=== PATIENT | female | born 1985 | race Caucasian/White ===

== ENCOUNTER 2016-09-06 10:27 | Emergency (ER) | payer MEDICAID ==
[~2016-09-06] VITALS: Ht 167.6 cm; Wt 63.0 kg
[2016-09-06] MEDS ORDERED: TETRACAINE HCL 0.5% OPHT DROP 2 ML BOTTLE OP ONE (10:45)
[2016-09-06] MEDS ORDERED: FLUORESCEIN SODIUM 1 MG STRIP OP ONE (10:45)
--- NOTE | 2016-09-06 10:56 | NUR ---
ACUITY CHECHED, TETRACAINE AND FLURO STRIP AT THE BEDSIDE WITH BLACK LIGHT LAMP FOR MD TO USE.
[2016-09-06] MEDS ORDERED: FLUORESCEIN SODIUM 1 MG STRIP ONE (11:03)
[2016-09-06] MEDS ORDERED: TETRACAINE HCL 0.5% OPHT DROP 2 ML BOTTLE ONE (11:03)
--- NOTE | 2016-09-06 11:14 | NUR ---
PT D/C'D HOME, ACI/RX X1 GIVEN. PT AAMBULATED W/O DIFF/TOOK ALL BELONGINGS.
[2016-09-06 11:16] VITALS: BP 118/76
== END 2016-09-06 11:17 | disposition home or self-care (01) ==
LOC: ER 10:27
DX: H18.823 Corneal disorder due to contact lens, bilateral (principal)
CPT/HCPCS: A4663

== ENCOUNTER 2019-01-27 21:16 | Emergency (ER) | payer BC ==
[~2019-01-27] VITALS: Ht 165.1 cm; Wt 68.0 kg
--- NOTE | 2019-01-27 21:38 | NUR ---
PT IS AMBULATORY W/ STABLE GAIT ABLE TO VOID FREELY ABLE TO SPEAK CLEAR AND COMPLETE SENTENCES AOX4 REPORTS VOMITING ONCE LAST WEEK REPORTS DIZZINESS 30MINS MATE RELIEF, DENIES TRAUMA NOR SURGERY TO THE SITE DENIES BLURRED VISION NOR EYE PAIN, DENIES EARPAIN DENIES RECENTS TRAVELS LMP 12/27/2018, IRREGULAR MENSES SEXUALLY ACTIVE W/ 1 PARTNER MD AT BEDSIDE FOR HX AND PHYSICAL
[2019-01-27 21:55] LABS: BASOPHILS % (AUTO) 0.3 % (0.0-2.0); EOSINOPHILS # (AUTO) 0.1 K/uL (0.0-0.7); EOSINOPHILS % (AUTO) 1.8 % (0.0-7.0); HEMATOCRIT 40.1 % (31.2-41.9); HEMOGLOBIN 13.5 g/dL (10.9-14.3); LYMPHOCYTES # (AUTO) 2.4 K/uL (20.0-40.0); LYMPHOCYTES % (AUTO) 34.2 % (20.5-51.5); MEAN CORPUSCULAR HEMOGLOBIN 30.4 uug (24.7-32.8); MEAN CORPUSCULAR HGB CONC 34 g/dL (32.3-35.6); MEAN CORPUSCULAR VOLUME 90.5 fL (75.5-95.3); MONOCYTES # (AUTO) 0.5 K/uL (2.0-10.0); MONOCYTES % (AUTO) 7.1 % (0.0-11.0); NEUTROPHILS # (AUTO) 3.9 K/uL (1.8-8.9); NEUTROPHILS % (AUTO) 56.6 % (38.5-71.5); PLATELET COUNT (AUTO) 288 K/uL (179-408); RED BLOOD CELL COUNT(AUTO) 4.43 MIL/uL (3.63-4.92); WHITE BLOOD COUNT (AUTO) 6.9 K/uL (3.8-11.8)
[2019-01-27 22:01] LABS: CREATININE 0.8 mg/dL (0.6-1.3); POTASSIUM 3.6 mmol/L (3.5-5.1)
[2019-01-27 22:07] LABS: BILIRUBIN,DIRECT 0.1 mg/dL (0.0-0.2); BILIRUBIN,TOTAL 0.2 mg/dL (0.2-1.0); TOTAL PROTEIN, SERUM 7.3 g/dL (6.4-8.2)
[2019-01-27 22:10] LABS: *URINE HCG, QUAL NEGATIVE (NEGATIVE)
[2019-01-27 22:14] LABS: *BILIRUBIN,URIN NEGATIVE (NEGATIVE); *BLOOD, URINE NEGATIVE (NEGATIVE); *COLOR,URINE YELLOW (YELLOW); *KETONES,URINE NEGATIVE (NEGATIVE); *UROBILINOGEN,URINE 0.2 E.U./dl (NORMAL); LEUKOCYTE ESTERASE ,URINE NEGATIVE (NEGATIVE); NITRITE, URINE NEGATIVE (NEGATIVE); UGLUCOSE NEGATIVE (NEGATIVE)
[2019-01-27 22:22] LABS: *CLARITY,URINE HAZY (CLEAR); WBC,URINE 0-3 /HPF (0-3)
[2019-01-27 22:23] LABS: BACTERIA,URINE MODERATE /HPF (NONE SEEN); SQUAMOUS EPITHELIAL CELL,UR MANY /HPF (NONE SEEN)
[2019-01-27] MEDS ORDERED: IV NS 1000 ML 1,000 ML IV ONE (22:45)
[2019-01-28 00:12] VITALS: BP 111/69
--- NOTE | 2019-01-28 00:12 | NUR ---
Patient discharged to home in stable conditon. Written and verbal after care instructions given. Patient verbalizes understanding of instructions. AMBULATORY W/ STABLE GAIT ALL BELONGINGS W/ PT
== END 2019-01-28 00:13 | disposition home or self-care (01) ==
LOC: ER 21:17
DX: R07.89 Other chest pain (principal); R42 Dizziness and giddiness; R53.1 Weakness
CPT/HCPCS: 36415; 70030-TC; 71045; 84703; 85025; 85730; 87086; 93005; A4663; J7030

== ENCOUNTER 2021-07-26 11:37 | Emergency (ER) | payer BC, MEDICAID ==
[~2021-07-26] VITALS: Ht 165.1 cm; Wt 66.7 kg
--- NOTE | 2021-07-26 11:40 | NUR ---
MD at bedside, medical screening exam in progress.
--- NOTE | 2021-07-26 12:06 | NUR ---
Chaperoned MD at pts bedside.
[2021-07-26 12:09] VITALS: BP 122/70
--- NOTE | 2021-07-26 12:09 | NUR ---
Patient discharged to home in stable condition. Written and verbal after care instructions given. Patient verbalizes understanding of instructions. Stressed follow up or return to ER for worsening s/s.
== END 2021-07-26 12:10 | disposition home or self-care (01) ==
LOC: ER 11:37
DX: T19.2XXA Foreign body in vulva and vagina, initial encounter (principal); X58.XXXA Exposure to other specified factors, initial encounter; Y92.89 Other specified places as the place of occurrence of the external cause
CPT/HCPCS: A4663